=== PATIENT | female | born 1975 | race Hispanic/Latino ===

== ENCOUNTER → 2020-10-28 | Day surgery (SDC) | payer OTHER ==
[~2020-10-28] MED LIST: LIDOCAINE HCL 2% LOCAL INJ 5 ML SDV VIAL INJ ONE; LOSARTAN POTASS25 MG PO; METOCLOPRAMIDE HCL 10 MG/2ML VIAL ONE; PANTOPRAZOLE 40 MG 10ML VIAL ONE; PHYTONADIONE 10 MG/ML AMP ONE; PHYTONADIONE 10 MG/ML AMP SC ONE; PROPOFOL IV EMULSION 10 MG/ML 20 ML VIAL ONE
[2020-10-28 08:45] VITALS: BP 108/74
== END | disposition home or self-care (01) ==
LOC: OR 06:08
PROVIDERS: ATTEND Internal Medicine Gastroenterology
DX: K29.50 Unspecified chronic gastritis without bleeding (principal); K74.60 Unspecified cirrhosis of liver; I85.10 Secondary esophageal varices without bleeding; K76.6 Portal hypertension; K31.89 Other diseases of stomach and duodenum; I10 Essential (primary) hypertension; Z01.810 Encounter for preprocedural cardiovascular examination; Z01.812 Encounter for preprocedural laboratory examination; Z20.822 Contact with and (suspected) exposure to COVID-19; Z68.29 Body mass index [BMI] 29.0-29.9, adult
CPT/HCPCS: 43239; 81025; 93005; J2001; J2765; J3430; U0002

== ENCOUNTER → 2024-11-16 | Day surgery (SDC) | payer OTHER ==
[2024-11-07 10:52] LABS: INR 1.09; PROTHROMBIN TIME 15.1 seconds (11.9-14.5)
[2024-11-07 10:53] LABS: PARTIAL THROMBOPLASTIN TIME 29.2 seconds (23.8-35.5)
[2024-11-07 11:01] LABS: ALBUMIN 3.7 g/dL (3.5-5.0); ALBUMIN/GLOBULIN RATIO 1.1 (0.8-2.0); BILIRUBIN,TOTAL 1.5 mg/dL (0.2-1.2); CALCIUM 9.2 mg/dL (8.4-10.2); CREATININE, SERUM 0.62 mg/dL (0.57-1.11); TOTAL PROTEIN 7.2 g/dL (6.5-8.1)
[2024-11-07 11:24] LABS: BASOPHILS % 0.4 % (0.0-1.0); EOSINOPHILS % 1.6 % (0.0-6.0); HEMATOCRIT 38.2 % (34.2-44.1); LYMPHOCYTES % 41.5 % (18.0-39.1); MEAN CORPUSCULAR HEMOGLOBIN 30.7 pg (28-32); MEAN CORPUSCULAR VOLUME 90.1 fL (81-99); MONOCYTES # (AUTO) 0.2 (0.2-0.8); MONOCYTES % 7.7 % (4.4-11.3); NEUTROPHILS # (AUTO) 1.2 (2.1-6.9); NEUTROPHILS % 48.4 % (38.7-80.0); RED BLOOD COUNT 4.24 x10e6/uL (3.6-5.1); RED CELL DISTRIBUTION WIDTH 14.2 % (11.7-14.4); WHITE BLOOD COUNT 2.48 x10e3/uL (4.8-10.8)
[2024-11-07 11:25] LABS: PLATELET COUNT 35 x10e3/uL (140-360)
[~2024-11-16] MED LIST changes: +METFORMIN HCL500 MG PO; +METOPROLOL SUCC50 MG PO; +OMEPRAZOLE40 MG PO; -PANTOPRAZOLE 40 MG 10ML VIAL ONE; -PHYTONADIONE 10 MG/ML AMP ONE; -PHYTONADIONE 10 MG/ML AMP SC ONE
[2024-11-16 09:22] VITALS: TEMP 97.3
[2024-11-16] MEDS: LACTATED RINGER'S 1,000 ML ONE (09:27)
[2024-11-16 09:45] VITALS: BP 135/86; PULSE 65; RESP 16; O2SAT 98
== END | disposition home or self-care (01) ==
LOC: OR 06:22
PROVIDERS: ATTEND Internal Medicine Gastroenterology
DX: K74.69 Other cirrhosis of liver (principal); I85.10 Secondary esophageal varices without bleeding; K29.50 Unspecified chronic gastritis without bleeding; K76.6 Portal hypertension; E66.3 Overweight; E11.9 Type 2 diabetes mellitus without complications; I10 Essential (primary) hypertension; Z78.9 Other specified health status; Z01.810 Encounter for preprocedural cardiovascular examination; Z01.812 Encounter for preprocedural laboratory examination; Z79.84 Long term (current) use of oral hypoglycemic drugs; Z79.899 Other long term (current) drug therapy; Z68.28 Body mass index [BMI] 28.0-28.9, adult; Z71.3 Dietary counseling and surveillance
CPT/HCPCS: 36415 ×2; 43244; 80053; 82948; 85025; 85610; 85730; 93005; J2003; J2704; J7121; 43255; J2765